=== PATIENT | female | born 1995 | race Two or more races ===

== ENCOUNTER 2016-10-11 21:58 | Emergency (ER) | payer OTHER ==
[2016-10-11 22:07] VITALS: TEMP 98; BMI 23.8
--- NOTE | 2016-10-11 23:28 | PDOC ---
History of Present Illness - General Chief Complaint: Pain Stated Complaint: VAGINAL BLEEDING/6 WEEKS Time Seen by Provider: 10/11/16 23:00 - History of Present Illness Initial Comments: 10/11/16 23:24 CHIEF COMPLAINT: vag bleeding in HISTORY OF PRESENT ILLNESS: 20 yo ~6 wk F with no PMH presents to ED with vaginal bleeding since yesterday. Patient reports that she went to [facility] yesterday and was told that her fetus was not developing correctly in correlation with her LMP. Patient does not have US report or discharge paperwork with her here in the ED. Patient denies any current abdominal pain but reports that she has been passing clots since around 6 pm. No recent travel or sick contacts. PAST MEDICAL HISTORY: Denies past medical history FAMILY HISTORY: Denies SOCIAL HISTORY: Denies tobacco, alcohol, illicit drug use. SURGICAL HISTORY: Denies ALLERGIES: peach REVIEW OF SYSTEMS General/Constitutional: Denies fever or chills. Denies weakness, weight change. Cardiovascular: Denies chest pain or shortness of breath. Respiratory: Denies cough, wheezing, or hemoptysis. Gastrointestinal: Denies nausea, vomiting, diarrhea or constipation. Genitourinary: Vaginal bleeding x 1 day. Denies dysuria, frequency, or change in urination. Musculoskeletal: Denies joint or muscle swelling or pain. Denies neck or back pain. Skin and breasts: Denies rash or easy bruising. Neurological: No dizziness, lightheadedness. PHYSICAL EXAM General Appearance: Well-appearing, appropriately dressed. No apparent distress , no intoxication. HEENT: EOMI, PERRLA, normal ENT inspection, normal voice, TMs normal, pharynx normal. No conjunctival pallor. No photophobia, scleral icterus. Neck: Supple. Trachea midline. No tenderness, rigidity, carotid bruit, stridor , lymphadenopathy, or thyromegaly. Respiratory/Chest: Lungs CTAB. No shortness of breath, chest tenderness, respiratory distress, accessory muscle use. No crackles, rales, rhonchi, stridor , wheezing, dullness Cardiovascular: RRR. S1, S2. No JVD, murmur, bradycardia, tachycardia. Vascular Pulses: Dorsalis-Pedis (R): 2+, Dorsalis-Pedis (L): 2+ Gastrointestinal/Abdominal: Normal bowel sounds. Abdomen soft, non-distended. No tenderness or rebound tenderness. No organomegaly, pulsatile mass, guarding , hernia, hepatomegaly, splenomegaly. Pelvic: External genitalia normal without lesions. Vaginal vault with copious bloody discharge, clots visualized. Cervical os open. Uterus is nontender and normal in size. Adnexa are nontender and without masses. Lymphatic: No adenopathy, tenderness. Musculoskeletal/Extremities: Normal inspection. FROM of all extremities, normal capillary refill. Pelvis Stable. No CVA tenderness. No tenderness to extremities, pedal edema, swelling, erythema or deformity. Integumentary: Appropriate color, dry, warm. 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 Fully oriented, alert. Appropriate mood/affect. Motor strength 5/5. No appreciable EOM palsy, facial droop or sensory deficit. Past History - Past Medical History Allergies/Adverse Reactions: Allergies Allergy/AdvReac Type Severity Reaction Status Date / Time peach Allergy Swelling Verified 10/11/16 22:03 Home Medications: Ambulatory Orders Ibuprofen [Motrin -] 600 mg PO TID PRN #21 tablet 04/16/15 Levofloxacin [Levaquin] 750 mg PO DAILY #4 tablet 04/16/15 Ondansetron [Zofran -] 4 mg PO TID PRN #21 tablet 04/16/15 Other medical history: Pt denies - Psycho/Social/Smoking Cessation Hx Suicidal Ideation: No Smoking History: Never smoked Information on smoking cessation initiated: No Hx Alcohol Use: No Drug/Substance Use Hx: No Substance Use Type: None *Physical Exam - Vital Signs Last Vital Signs Temp Pulse Resp BP Pulse Ox 98.0 F 64 20 137/83 99 10/11/16 22:03 10/11/16 22:03 10/11/16 22:03 10/11/16 22:03 10/11/16 22:03 ED Treatment Course - LABORATORY CBC & Chemistry Diagram: 10/11/16 23:50 10/11/16 23:50 - RADIOLOGY Radiology Studies Ordered: Category Date Time Status TRANSVAGINAL US PREG [US] Stat Ultrasound 10/11/16 23:24 Ordered Medical Decision Making - Medical Decision Making 10/11/16 23:28 20 yo ~6 wk F with no PMH presents to ED with vaginal bleeding since yesterday. -CBC, CMP, PT/INR, T&S, beta hcg -TVUS 10/12/16 01:45 H&H stable. Patient blood type )+, Rhogam not indicated. Ultrasound results: Findings: The uterus is anteverted and on endovaginal images measures 9.7 x 4.8 x 6 cm. The right ovary measures 3.7 x 1.9 cm and contains a 2.5 cm cyst there is normal arterial flow is seen in the ovarian parenchyma and color Doppler images. The left ovary has a normal appearance contains follicles and measures 1.3 x 2.4 x 1.2 cm with normal arterial and venous flow seen on color Doppler images. The endometrial complex measures 1 cm in diameter within normal limits. No free fluid is seen. Impression: No IUP. Normal appearance of the uterus, endometrium. Right ovarian cyst. Normal appearance of the ovaries otherwise have normal vascular flow seen bilaterally. Read by: Francisco Payne M.D. 10/12/2016 01:36 EST Advised patient to f/u with OB this week; patient states she has appointment on Tue. Advised patient of signs and symptoms for return to ER; patient verbalized understanding and agrees to plan. 10/12/16 02:01 *DC/Admit/Observation/Transfer Diagnosis at time of Disposition: Miscarriage Ovarian cyst Qualifiers: Laterality: right Qualified Code(s): N83.201 - Unspecified ovarian cyst, right side - Discharge Dispostion Disposition: HOME Condition at time of disposition: Stable Admit: No - Referrals Referrals: Ernesto Javed MD [Staff Physician] - - Patient Instructions Printed Discharge Instructions: DI for Miscarriage, DI for Ovarian Cyst Additional Instructions: Please follow up with your band and cuff cutter this week for continued monitoring of this miscarriage. If you experience severe bleeding (more than one soaked pad an hour), lightheadedness, dizziness, palpitations, or any new or worsening symptoms, please return to the ER.
[2016-10-12 00:03] LABS: BASOPHIL 0.7 % (0-2.0); EOSINOPHIL 1.8 % (0-4.5); MCH 31.9 pg (25.7-33.7); MCHC 33.6 g/dl (32.0-36.0); MEAN PLT VOLUME 8.5 fl (7.5-11.1); NEUTROPHILS 52.3 % (42.8-82.8); PLATELET COUNT 264 K/MM3 (134-434); RDW 13.2 % (11.6-15.6); WHITE BLOOD COUNT 9.6 K/mm3 (4.0-10.0)
[2016-10-12 00:16] LABS: INR 1.09 (0.82-1.09)
[2016-10-12 00:53] LABS: ALBUMIN 4.1 g/dl (3.4-5.0); ANION GAP 10 (8-16); CALCIUM 9.2 mg/dL (8.5-10.1); CO2 26 mmol/L (21-32); CREATININE 0.8 mg/dL (0.55-1.02); GLUCOSE,RANDOM 134 mg/dL (74-106); SGPT/ALT 20 U/L (12-78)
[2016-10-12 00:54] LABS: ALK PHOS 65 U/L (45-117); BILIRUBIN,TOTAL 0.3 mg/dL (0.2-1.0); TOT PROT 7.4 g/dl (6.4-8.2)
[2016-10-12 00:58] LABS: SGOT/AST 19 U/L (15-37)
[2016-10-12 02:01] VITALS: BP 128/76; PULSE 70
== END 2016-10-12 02:01 | disposition home or self-care (01) ==
LOC: JER 21:58
DX: O03.9 Complete or unspecified spontaneous abortion without complication (principal); N83.201 Unspecified ovarian cyst, right side
CPT/HCPCS: 36415; 76817-TC; 80053; 84702; 85025; 85610; 86850; 86900; 86901; 99282-25

== ENCOUNTER 2017-03-11 19:50 | Emergency (ER) | payer OTHER ==
--- NOTE | 2017-03-11 20:11 | PDOC ---
Rapid Medical Evaluation Time Seen by Provider: 03/11/17 20:10 Medical Evaluation: Allergies Allergy/AdvReac Type Severity Reaction Status Date / Time peach Allergy Swelling Verified 10/11/16 22:03 03/11/17 20:10 I have performed a brief in -person evaluation of this patient. The patient presents with a chief complaint of: "i have a UTI and back pain" Pertinent physical exam findings:L CVAT I have ordered the following: UA/ Upreg/UC The patient will proceed to the ED for further evaluation.
[2017-03-11 20:13] VITALS: BP 138/78; PULSE 81; TEMP 98.5; BMI 25.0
--- NOTE | 2017-03-11 21:13 | PDOC ---
History of Present Illness - General Chief Complaint: Urinary Problem Stated Complaint: ABD PAIN Time Seen by Provider: 03/11/17 20:10 History Source: Patient Exam Limitations: No Limitations - History of Present Illness Travel History: No Initial Comments: 03/11/17 21:29 21-year-old female with no medical history presents to the emergency department complaining of dysuria, urinary frequency/urgency/hesitancy x3dm without hematuria, fever/chills, nausea/vomiting, chest pain, shortness of breath, abdominal pains. Patient states she has a history of UTIs that turns into a kidney infection. Patient denies any other complaints Timing/Duration: reports: intermittent Pain Radiation: reports: flank (left) Past History - Past Medical History Allergies/Adverse Reactions: Allergies Allergy/AdvReac Type Severity Reaction Status Date / Time peach Allergy Swelling Verified 10/11/16 22:03 Home Medications: Ambulatory Orders Sulfamethoxazole/Trimethoprim [Bactrim Ds -] 1 tab PO BID #14 tablet 03/11/17 COPD: No - Suicide/Smoking/Psychosocial Hx Smoking History: Never smoked Hx Alcohol Use: No Drug/Substance Use Hx: No Substance Use Type: None Review of Systems - Review of Systems Able to Perform ROS?: Yes Comments:: 03/11/17 21:27 CONSTITUTIONAL: Absent: fever, chills, diaphoresis, generalized weakness, malaise, loss of appetite CARDIOVASCULAR: Absent: chest pain, loss of consciousness, palpitations, irregular heart rate, peripheral edema RESPIRATORY: Absent: cough, shortness of breath, dyspnea with exertion, orthopnea, wheezing, stridor, hemoptysis GASTROINTESTINAL: Absent: abdominal pain, abdominal distension, nausea, vomiting, diarrhea, constipation, melena, hematochezia GENITOURINARY: +right flank pain Absent: dysuria, frequency, urgency, hesitancy, hematuria, genital pain MUSCULOSKELETAL: Absent: myalgia, arthralgia, joint swelling SKIN: Absent: rash, itching, pallor HEMATOLOGIC/IMMUNOLOGIC: Absent: easy bleeding, easy bruising, lymphadenopathy, frequent infections Is the patient limited Tajik proficient: No *Physical Exam - Vital Signs Last Vital Signs Temp Pulse Resp BP Pulse Ox 98.5 F 81 18 138/78 99 03/11/17 20:10 03/11/17 20:10 03/11/17 20:10 03/11/17 20:10 03/11/17 20:10 - Physical Exam Comments: 03/11/17 21:27 GENERAL: Well developed, well nourished. Awake and alert. No acute distress. ABDOMINAL: Soft. Non-tender. Non-distended. No rebound or guarding. No organomegaly. Normoactive bowel sounds. MUSCULOSKELETAL +R CVAT Normal range of motion at all joints. No bony deformities or tenderness. EXTREMITIES: No cyanosis. No clubbing. No edema. No calf tenderness. SKIN: Warm and dry. Normal capillary refill. No rashes. No jaundice. Medical Decision Making - Medical Decision Making 03/12/17 02:47 21-year-old female presents to the emergency department complaining of dysuria, urinary frequency/urgency/hesitancy with left-sided flank pain but denied any fever, chills, nausea/vomiting. UA was sent but did not show a UTI. Due to patient's symptoms and the similarity to her previous pyelonephritis. Patient will be treated with Bactrim DS. *DC/Admit/Observation/Transfer Diagnosis at time of Disposition: Pyelonephritis - Discharge Dispostion Disposition: HOME Condition at time of disposition: Good Admit: No - Prescriptions Prescriptions: Sulfamethoxazole/Trimethoprim [Bactrim Ds -] 1 tab PO BID #14 tablet - Referrals Referrals: Ernesto Javed MD [Staff Physician] - - Patient Instructions Printed Discharge Instructions: DI for Kidney Infection Additional Instructions: Increase fluids] Take Bactrim DS as prescribed Pelvic rest Follow up with your physician or the housekeeper listed on your discharge Return to the ER for severe/persistent/worsening symptoms - Post Discharge Activity
[2017-03-11 21:35] LABS: URINE APPEARANCE SLCLOUDY; URINE BILIRUBIN NEGATIVE (NEGATIVE); URINE BLOOD 1+ (NEGATIVE); URINE COLOR YELLOW; URINE GLUCOSE (UA) NEGATIVE (NEGATIVE); URINE KETONE NEGATIVE (NEGATIVE); URINE LEUK ESTERASE TRACE (NEGATIVE); URINE NITRITE NEGATIVE (NEGATIVE); URINE PROTEIN NEGATIVE (NEGATIVE); URINE UROBILINOGEN NEGATIVE mg/dL (0.2-1.0)
[2017-03-11 21:36] LABS: HCG,QUALITATIVE URINE NEGATIVE
[2017-03-11 21:41] LABS: EPI CELLS MODERATE /HPF (FEW); URINE HYALINE CAST 4 /lpf; URINE MUCUS RARE
[2017-03-11] MEDS ORDERED: SULFAMETHOXAZOLE/TRIMETHOPRIM 800MG/160MG D.S. TABLET PO ONE (21:51)
[2017-03-11] MEDS ORDERED: SULFAMETHOXAZOLE/TRIMETHOPRIM 800MG/160MG D.S. TABLET ONE (21:53)
== END 2017-03-11 21:54 | disposition home or self-care (01) ==
LOC: JERFT 19:50
DX: N12 Tubulo-interstitial nephritis, not specified as acute or chronic (principal)
CPT/HCPCS: 81003; 81015; 84703; 87086; 99281-25

== ENCOUNTER 2017-03-21 08:57 | Emergency (ER) | payer OTHER ==
[2017-03-21 09:06] VITALS: BP 120/74; PULSE 77; TEMP 98.3; BMI 23.4
[2017-03-21 09:43] LABS: HCG,QUALITATIVE URINE NEGATIVE
[2017-03-21 09:44] LABS: URINE APPEARANCE SLCLOUDY; URINE BILIRUBIN NEGATIVE (NEGATIVE); URINE BLOOD NEGATIVE (NEGATIVE); URINE COLOR YELLOW; URINE GLUCOSE (UA) NEGATIVE (NEGATIVE); URINE KETONE NEGATIVE (NEGATIVE); URINE LEUK ESTERASE TRACE (NEGATIVE); URINE NITRITE NEGATIVE (NEGATIVE); URINE PROTEIN NEGATIVE (NEGATIVE); URINE UROBILINOGEN NEGATIVE mg/dL (0.2-1.0)
[2017-03-21 10:20] LABS: EPI CELLS MODERATE /HPF (FEW)
[2017-03-21] MEDS ORDERED: AZITHROMYCIN 1 GM PACKET PO ONE (11:10)
--- NOTE | 2017-03-21 11:10 | PDOC ---
History of Present Illness - General Chief Complaint: Back Pain Stated Complaint: LOWER BACK PAIN Time Seen by Provider: 03/21/17 09:29 History Source: Patient Exam Limitations: No Limitations - History of Present Illness Initial Comments: 03/21/17 11:12 Patient is a 21-year-old female, with history of frequent UTIs on no medication presents for evaluation of right lower back pain and suprapubic pain. Patient was seen in the emergency Department on 03/11/2017 for the same there is blood noted in urinalysis without WBCs urine culture was clear however patient was treated with antibiotics. Patient states that she completed course of antibiotic therapy and still with pain. Patient denies any fever or chills, no hematuria, no nausea vomiting, no chest pain or shortness of breath. No upper abdominal pain. She is sexually active with same partner. Past Medical History: [Denies]. Allergies: No known allergies Medications: [Bactrim, completed] Family History: Non-contributory Social History: Denies smoking, alcohol use, or IVDU Review of Systems GENERAL/CONSTITUTIONAL: [No fever or chills. No weakness. No weight change.] HEAD, EYES, EARS, NOSE AND THROAT: [No change in vision. No ear pain or discharge. No sore throat. ] CARDIOVASCULAR: [No chest pain or shortness of breath.] RESPIRATORY: [No cough, wheezing, or hemoptysis.] GASTROINTESTINAL: [No nausea, vomiting, diarrhea or constipation. No rectal bleeding.] GENITOURINARY: [Frequency without dysuria, vaginal discharge no bleeding] MUSCULOSKELETAL: [No joint or muscle swelling or pain. No neck or back pain.] SKIN : [No rash or easy bruising.] NEUROLOGIC: [No headache, vertigo, loss of consciousness, or loss of sensation.] PSYCHIATRIC: [No depression or anxiety.] ENDOCRINE: [No increased thirst. No abnormal weight change.] HEMATOLOGIC/LYMPHATIC: [No anemia, easy bleeding, or history of blood clots.] ALLERGIC/IMMUNOLOGIC: [No hives or skin allergy. No latex allergy.] Physical Exam: GENERAL: [The patient is awake, alert, and fully oriented, in no acute distress. ] HEAD: [Normal with no signs of trauma.] EYES: [Pupils equal, round and reactive to light, extraocular movements intact, sclera anicteric, conjunctiva clear.] ENT: [Ears normal, nares patent, oropharynx clear without exudates. Moist mucous membranes. No uvula deviation] NECK: [Normal range of motion, supple without lymphadenopathy, JVD, or masses.] LUNGS: [Breath sounds equal, clear to auscultation bilaterally. No wheezes, and no crackles.] HEART: [Regular rate and rhythm, normal S1 and S2 without murmur, rub or gallop. ] ABDOMEN: [Soft, nontender, normoactive bowel sounds. No guarding, no rebound. No masses. No bruising or abrasions] Genitalia: White discharge, no odor, is no CMT MUSCULOSKELETAL: [Normal range of motion, no edema. No clubbing or cyanosis. No cords, erythema, or tenderness. No CVA Tenderness with fist.] NEUROLOGICAL: [Cranial nerves II through XII grossly intact. Normal speech, normal gait.] SKIN: [Warm, Dry, normal turgor, no rashes or lesions noted.] Past History - Past Medical History Allergies/Adverse Reactions: Allergies Allergy/AdvReac Type Severity Reaction Status Date / Time peach Allergy Swelling Verified 03/21/17 09:02 Home Medications: Ambulatory Orders Sulfamethoxazole/Trimethoprim [Bactrim Ds -] 1 tab PO BID #14 tablet 03/11/17 COPD: No DVT: No - Immunization History Immunization Up to Date: Yes - Suicide/Smoking/Psychosocial Hx Smoking History: Never smoked Have you smoked in the past 12 months: No Information on smoking cessation initiated: No Hx Alcohol Use: No Drug/Substance Use Hx: No Substance Use Type: None *Physical Exam - Vital Signs Last Vital Signs Temp Pulse Resp BP Pulse Ox 98.3 F 77 16 120/74 98 03/21/17 09:03 03/21/17 09:03 03/21/17 09:03 03/21/17 09:03 03/21/17 09:03 ED Treatment Course - ADDITIONAL ORDERS Additional order review: Laboratory Results 03/21/17 09:36 Urine Color Yellow Urine Appearance Slcloudy Urine pH 6.0 Ur Specific [place] 1.020 Urine Protein Negative Urine Glucose (UA) Negative Urine Ketones Negative Urine Blood Negative Urine Nitrite Negative Urine Bilirubin Negative Urine Urobilinogen Negative Ur Leukocyte Esterase Trace Urine WBC (Auto) 7 Urine RBC (Auto) None Ur Epithelial Cells Moderate Urine HCG, Qual Negative - RADIOLOGY Radiology Studies Ordered: Category Date Time Status HIP & PELVIS-RIGHT [RAD] Stat Radiology 03/21/17 10:11 Completed Medical Decision Making - Medical Decision Making 03/21/17 11:20 A/P: Patient with lower back pain and suprapubic pain denies any urinary pain or frequency however has vaginal discharge which is not normal for patient denies any odor. Sent to x-ray of right hip because there is pain at level of SI joint may be dermatomal radiating to lower abdomen versus STD. Urinalysis sent, there are WBCs with absence of nitrates patient has been treated with Bactrim urinary culture was previously clear. Based upon patient's symptoms, urinalysis results will treat for STD with azithromycin and Rocephin. Patient to call in one week for results of gonorrhea chlamydia testing. Motrin for pain, follow-up with APPRENTICESHIP CONSULTANT I discussed the physical exam findings, ancillary test results and final diagnoses with the patient. I answered all of the patient's questions. The patient was satisfied with the care received and felt comfortable with the discharge plan and treatment plan. The patient will call to arrange follow-up and will return to the Emergency Department with any new, persistent or worsening symptoms. *DC/Admit/Observation/Transfer Diagnosis at time of Disposition: Back pain Qualifiers: Back pain location: low back pain Chronicity: acute Back pain laterality: right Sciatica presence: without sciatica Qualified Code(s): M54.5 - Low back pain - Discharge Dispostion Disposition: HOME Condition at time of disposition: Stable Admit: No - Referrals Referrals: [facility] [Provider Group] - Patient Instructions Additional Instructions: PLease call [phone] in one week for results of GC and Chlamydia and urine culture Motrin for pain No sexual intercourse for at least 2 weeks Recommend follow-up with PMD in 1 week if symptoms persist - Post Discharge Activity Forms/Work/School Notes: Back to Work
[2017-03-21] MEDS ORDERED: AZITHROMYCIN 250 MG TABLET PO ONE (11:19)
[2017-03-21] MEDS ORDERED: LIDOCAINE HCL 1%, 10 MG/ML (20ML VIAL) ONE (11:20)
[2017-03-21] MEDS ORDERED: AZITHROMYCIN 500 MG TABLET ONE (11:20)
== END 2017-03-21 11:39 | disposition home or self-care (01) ==
LOC: JERFT 08:57
DX: M54.5 Low back pain (principal); Z20.2 Contact with and (suspected) exposure to infections with a predominantly sexual mode of transmission
CPT/HCPCS: 36415; 73523-TC; 81003; 81015; 84703; 87086; 87491; 87591; 96372; 99281-25

== ENCOUNTER 2017-08-03 10:44 | Emergency (ER) | payer OTHER ==
[2017-08-03 10:49] VITALS: BP 119/78; PULSE 71; TEMP 97.7; BMI 23.8
--- NOTE | 2017-08-03 11:50 | PDOC ---
History of Present Illness - General Chief Complaint: Sore Throat Stated Complaint: THROAT PAIN Time Seen by Provider: 08/03/17 10:50 - History of Present Illness Initial Comments: 21-year-old female with sore throat 2 days. Her pain is relieved with Motrin exacerbated with swallowing. No comorbidities. She has no other associated symptoms. 08/03/17 11:47 Past History - Past Medical History Allergies/Adverse Reactions: Allergies Allergy/AdvReac Type Severity Reaction Status Date / Time peach Allergy Swelling Verified 08/03/17 10:45 Home Medications: Ambulatory Orders NK [No Known Home Medication] 08/03/17 COPD: No DVT: No - Immunization History Immunization Up to Date: Yes - Suicide/Smoking/Psychosocial Hx Smoking History: Never smoked Have you smoked in the past 12 months: No Hx Alcohol Use: No Drug/Substance Use Hx: No Substance Use Type: None Review of Systems - Review of Systems HEENTM: Yes: Throat Pain All Other Systems: Reviewed and Negative *Physical Exam - Vital Signs Last Vital Signs Temp Pulse Resp BP Pulse Ox 97.7 F 71 20 119/78 99 08/03/17 10:45 08/03/17 10:45 08/03/17 10:45 08/03/17 10:45 08/03/17 10:45 - Physical Exam Comments: GENERAL: The patient is awake, alert, and fully oriented, in no acute distress. HEAD: Normal with no signs of trauma. EYES: Pupils equal, round and reactive to light, extraocular movements intact, sclera anicteric, conjunctiva clear. ENT: Ears normal, nares patent, oropharynx is injected without exudates. Moist mucous membranes. NECK: Normal range of motion, supple without lymphadenopathy, JVD, or masses. LUNGS: Breath sounds equal, clear to auscultation bilaterally. No wheezes, and no crackles. HEART: Regular rate and rhythm, normal S1 and S2 without murmur, rub or gallop. ABDOMEN: Soft, nontender, normoactive bowel sounds. No guarding, no rebound. No masses. EXTREMITIES: Normal range of motion, no edema. No clubbing or cyanosis. No cords, erythema, or tenderness. NEUROLOGICAL: Cranial nerves II through XII grossly intact. Normal speech, normal gait. PSYCH: Normal mood, normal affect. SKIN: Warm, Dry, normal turgor, no rashes or lesions noted. 08/03/17 11:49 Medical Decision Making - Medical Decision Making 21-year-old healthy female with sore throat 2 days. I'll get a rapid strep test and await those results. 08/03/17 11:49 *DC/Admit/Observation/Transfer Diagnosis at time of Disposition: Viral pharyngitis - Discharge Dispostion Disposition: HOME Condition at time of disposition: Stable Decision to Admit order: No - Referrals Referrals: Jack Lee MD [Staff Physician] - - Patient Instructions Printed Discharge Instructions: Viral Pharyngitis, DI for Viral Pharyngitis Additional Instructions: Your rapid strep test was negative. A culture was sent Should the result become positive we will place her on antibiotic if needed. In the meantime he can follow up with the primary care provider at provided for you. Continue to take Motrin and Tylenol for pain as directed. Return to the emergency room if her symptoms worsen or go unresolved prior to follow-up with the primary care doctor. - Post Discharge Activity
== END 2017-08-03 12:37 | disposition home or self-care (01) ==
LOC: JERFT 10:44
DX: J02.8 Acute pharyngitis due to other specified organisms (principal); B97.89 Other viral agents as the cause of diseases classified elsewhere
CPT/HCPCS: 87070; 87430; 99281-25

== ENCOUNTER 2019-05-02 14:45 | Inpatient (IN) | payer OTHER ==
[2019-05-02 16:43] VITALS: BMI 26.2
[2019-05-02 17:41] LABS: INR 0.95 (0.83-1.09); PROTHROMBIN TIME (PATIENT) 11.2 SEC (9.7-13.0)
[2019-05-02 17:42] LABS: BASO % 0.2 % (0-2.0); EOS % 0.6 % (0-4.5); HEMATOCRIT 33.2 % (32.4-45.2); HEMOGLOBIN 10.8 GM/dL (10.7-15.3); LYMPH % 38.3 % (8-40); MCH 29.4 pg (25.7-33.7); MCHC 32.6 g/dl (32.0-36.0); MEAN CELL VOLUME 90.1 fl (80-96); MONO % 10.1 % (3.8-10.2); NEUT % 50.8 % (42.8-82.8); PLATELET COUNT 298 K/MM3 (134-434); RBC 3.69 M/mm3 (3.60-5.2); WHITE BLOOD COUNT 7.3 K/mm3 (4.0-10.0)
[2019-05-02 17:44] LABS: ACTIVATED PTT 31.2 SECONDS (25.2-36.5)
[2019-05-02 18:07] LABS: BLOOD UREA NITROGEN 8.2 mg/dL (7-18); CALCIUM 8.5 mg/dL (8.5-10.1); CREATININE 0.8 mg/dL (0.55-1.3); POTASSIUM 4.1 mmol/L (3.5-5.1)
--- NOTE | 2019-05-02 18:32 | HP ---
Past Medical History - Primary Care Physician PCP:: Josie Rowe - Admission Chief Complaint: 23yo P0 @ 39.4 wks noted to have SUSANNE=2 on the US today, no ctxns, no VB, no LOF, + FM;. Sent to L&D for IOL with cervidil - Past Medical History ...: 4 ...Para: 0 ...Spon : 1 ...Induced : 2 ...LMP: 07/27/18 ... Weeks Gestation by Dates: 39.6 ...EDC by Dates: 05/03/19 ...EDC by Sono: 05/06/19 - Past Surgical History Past Surgical History: Yes: None - Smoking History Smoking history: Never smoked Have you smoked in the past 12 months: No - Alcohol/Substance Use Hx Alcohol Use: No History of Substance Use: reports: None - Social History ADL: Independent History of Recent Travel: No Home Medications - Allergies Allergies/Adverse Reactions: Allergies Allergy/AdvReac Type Severity Reaction Status Date / Time peach Allergy Swelling Verified 02/23/19 11:12 - Home Medications Home Medications: Ambulatory Orders Prenat 115/Iron Fum/Folic/Dss [ 19 Tablet] 1 cap PO DAILY 02/23/19 Physical Exam - Maternity Vital Signs: Vital Signs Temperature 98.3 F 05/02/19 16:00 Pulse Rate 90 05/02/19 16:00 Respiratory Rate 20 05/02/19 16:00 Blood Pressure 113/70 05/02/19 16:00 O2 Sat by Pulse Oximetry (%) - Labs Lab Results: CBC, BMP 05/02/19 15:50 05/02/19 15:50
[2019-05-02] MEDS ORDERED: ELECTROLYTE-148 SOLN 1,000 ML IV SCH (18:45)
[2019-05-02] MEDS ORDERED: DINOPROSTONE 10 MG VAGINAL SUPPOSITORY VG ONE (20:00)
[2019-05-03] MEDS ORDERED: DINOPROSTONE 10 MG VAGINAL SUPPOSITORY VG ONE
[2019-05-03] MEDS ORDERED: ELECTROLYTE-148 SOLN 1,000 ML IV SCH (09:30)
--- NOTE | 2019-05-03 20:10 | PN ---
Progress Note (short form) - Note Progress Note: 230 pm cx 1 cm 25 vx -3 mi, fhr cat 1, irregular mild contraction , repeat cervidl discussed , risks explained, cervidil inserted
[2019-05-03] MEDS ORDERED: PROMETHAZINE HCL 25 MG/1 ML VIAL IVPB ONE (21:07)
[2019-05-03] MEDS ORDERED: BUTORPHANOL TARTRATE 1 MG/ML VIAL IVPUSH PRN (21:07)
[2019-05-04] MEDS ORDERED: OXYTOCIN 30 UNITS in 0.9% NS 30 UNIT/500 ML INFUS.BAG IVPB SCH (05:00)
[2019-05-04] MEDS ORDERED: OXYTOCIN 30 UNITS in 0.9% NS 30 UNIT/500 ML INFUS.BAG IVPB ONE (05:08)
--- NOTE | 2019-05-04 06:39 | PN ---
Progress Note (short form) - Note Progress Note: cx 2 cm 70 vx -3 mi, fhr cat 1, cervidil was removed at 3 am, on pitocin.
[2019-05-04] MEDS ORDERED: AMPICILLIN SODIUM 2 GM VIAL ONE (07:41)
[2019-05-04] MEDS ORDERED: AMPICILLIN - 2 GM in SODIUM CHLORIDE 100 ML IVPB ONE (08:00)
[2019-05-04] MEDS: AMPICILLIN - 1 GM in SODIUM CHLORIDE 100 ML IVPB SCH ×2 (12:00→15:48)
[2019-05-04] MEDS ORDERED: AMPICILLIN SODIUM 1 GM VIAL ONE (12:55)
[2019-05-04] MEDS ORDERED: CITRIC ACID/SODIUM CITRATE 30 ML UNIT-DOSE CUP PO ONE (15:25)
[2019-05-04] MEDS ORDERED: ELECTROLYTE-148 SOLN 1,000 ML IV SCH (15:30)
--- NOTE | 2019-05-04 15:31 | PN ---
Progress Note (short form) - Note Progress Note: cx 2 cm, 50 vx -3 advised c/s, risks discussed
[2019-05-04] MEDS ORDERED: SUCCINYLCHOLINE CHLORIDE 200 MG/10 ML SYRINGE ONE (15:53)
[2019-05-04] MEDS ORDERED: morphine SULFATE/PF 0.5 MG/ML (2cc Syringe - QUVA) ONE (15:53)
[2019-05-04] MEDS ORDERED: PROPOFOL 20 ML ONE (15:53)
[2019-05-04] MEDS ORDERED: METHYLERGONOVINE MALEATE 0.2 MG/1 ML AMP IM PRN (17:00)
[2019-05-04] MEDS ORDERED: DEXTROSE 5%-LACTATED RINGERS 1,000 ML IV SCH (17:00)
[2019-05-04] MEDS ORDERED: IBUPROFEN 800 MG/8 ML IJ IVPB PRN (17:00)
[2019-05-04] MEDS ORDERED: OXYTOCIN 20 UNITS in 0.9% NS 20 UNIT/1,000 ML INFUS.BAG IV SCH (17:00)
[2019-05-04] MEDS ORDERED: diphenhydrAMINE HCL 25 MG CAPSULE (FP) PO PRN (17:00)
[2019-05-04] MEDS ORDERED: BENZOCAINE 28 GM HEMORRHOIDAL OINTMENT PR PRN (17:00)
[2019-05-04] MEDS ORDERED: oxyCODONE HCL 5 MG TABLET PO PRN ×2 (17:00)
[2019-05-04] MEDS ORDERED: BENZOCAINE 20% 57 GM BOTTLE TP PRN (17:00)
[2019-05-04] MEDS ORDERED: WITCH HAZEL 50% (TUCKS) 40 PAD/JAR PAD TP PRN (17:00)
[2019-05-04] MEDS ORDERED: ACETAMINOPHEN 325 MG TABLET (FP) PO PRN (17:01)
--- NOTE | 2019-05-04 17:05 | OP ---
Operative Note - Note: Operative Date: 05/04/19 Pre-Operative Diagnosis: 40 weeks, oligo , failed induction Operation: primary LST c/s Findings: live baby boy, ROP, cord around neck once, 11/13 Surgeon: Ernesto Javed Asset Card Clerk: Capo Rawls Anesthesia: Spinal Specimens Removed: placenta Estimated Blood Loss (mls): 500 Drains & Tubes with Location: iros Blood Volume Replaced (mls): 0 Operative Report Dictated: Yes
[2019-05-04] MEDS ORDERED: OXYTOCIN 20 UNITS in 0.9% NS 20 UNIT/1,000 ML INFUS.BAG IV ONE ×2 (17:14→21:02)
[2019-05-04] MEDS: CEFAZOLIN 1 GM/D5W 1 GM/50 ML BAG IVPB SCH (19:30)
[2019-05-05] MEDS: CEFAZOLIN 1 GM/D5W 1 GM/50 ML BAG IVPB SCH (02:08)
--- NOTE | 2019-05-05 08:38 | PN ---
Progress Note (short form) - Note Progress Note: Anesthesia/pain Pt seen and examined S:Alert and awake comfortable O: Vital Signs Temperature 98.0 F 05/05/19 06:00 Pulse Rate 98 H 05/05/19 06:00 Respiratory Rate 05/05/19 06:00 Blood Pressure 125/75 05/05/19 06:00 O2 Sat by Pulse Oximetry (%) 99 05/04/19 17:15 CBC, BMP 05/02/19 15:50 A/P: s/p c section Doing well post op Continue current care Forest Tenorio MD
[2019-05-05 09:15] LABS: BASO % 0.2 % (0-2.0); EOS % 0.3 % (0-4.5); HEMATOCRIT 32.2 % (32.4-45.2); HEMOGLOBIN 10.6 GM/dL (10.7-15.3); LYMPH % 17.3 % (8-40); MCHC 32.8 g/dl (32.0-36.0); MEAN CELL VOLUME 91.4 fl (80-96); MEAN PLT VOLUME 8.9 fl (7.5-11.1); MONO % 8.3 % (3.8-10.2); NEUT % 73.9 % (42.8-82.8); PLATELET COUNT 278 K/MM3 (134-434); RBC 3.52 M/mm3 (3.60-5.2); RDW 13.2 % (11.6-15.6); WHITE BLOOD COUNT 12.5 K/mm3 (4.0-10.0)
[2019-05-05] MEDS ORDERED: CEFAZOLIN 1 GM/D5W 1 GM/50 ML BAG IVPB SCH (10:00)
[2019-05-05] MEDS: ENOXAPARIN NA (PORCINE) 40 MG/0.4 ML DISP.SYRIN SQ SCH (10:18)
[2019-05-05] MEDS: ACETAMINOPHEN 325 MG TABLET (FP) PO PRN ×3 (11:59→22:36)
[2019-05-05] MEDS: SIMETHICONE 80 MG TAB.CHEW (FP) PO PRN ×3 (11:59→22:36)
[2019-05-05] MEDS: IBUPROFEN 600 MG TABLET (FP) PO PRN ×3 (12:00→22:37)
[2019-05-05] MEDS ORDERED: BISACODYL 10 MG SUPP.RECT PR PRN (17:00)
--- NOTE | 2019-05-05 17:45 | PN ---
Post Progress Note - Subjective Subjective: Patient without acute complaints. Reports tolerating oral intake without nausea or vomiting. Ambulating without dizziness. Denies fevers or chills. Pain well controlled with oral pain medication. Plan on pumping and breast feeding. No flatus or BM yet. Post Day: 1 Type of Delivery: Primary C/S Vital Signs: Vital Signs Temperature 97.5 F L 05/05/19 13:49 Pulse Rate 84 05/05/19 13:49 Respiratory Rate 20 05/05/19 13:49 Blood Pressure 110/72 05/05/19 13:49 O2 Sat by Pulse Oximetry (%) 99 05/04/19 17:15 Breast Exam: Yes: Soft Uterus: Yes: Fundus Firm, Fundus below umbilicus Incision: Yes: Dressing dry and intact, Sutures intact Abdomen/GI: Yes: Abdomen soft Lochia: Yes: Rubra Lochia, amount: Small Extremities: Yes: Calves non-tender Perineum: Yes: Intact Activity: Ambulating - Labs Labs: CBC WBC 12.5 K/mm3 (4.0-10.0) H 05/05/19 07:25 RBC 3.52 M/mm3 (3.60-5.2) L 05/05/19 07:25 Hgb 10.6 GM/dL (10.7-15.3) L 05/05/19 07:25 Hct 32.2 % (32.4-45.2) L 05/05/19 07:25 MCV 91.4 fl (80-96) 05/05/19 07:25 MCH 30.0 pg (25.7-33.7) 05/05/19 07:25 MCHC 32.8 g/dl (32.0-36.0) 05/05/19 07:25 RDW 13.2 % (11.6-15.6) 05/05/19 07:25 Plt Count 278 K/MM3 (134-434) 05/05/19 07:25 MPV 8.9 fl (7.5-11.1) 05/05/19 07:25 Absolute Neuts (auto) 9.2 K/mm3 (1.5-8.0) H 05/05/19 07:25 Neutrophils % 73.9 % (42.8-82.8) D 05/05/19 07:25 Lymphocytes % 17.3 % (8-40) D 05/05/19 07:25 Monocytes % 8.3 % (3.8-10.2) 05/05/19 07:25 Eosinophils % 0.3 % (0-4.5) 05/05/19 07:25 Basophils % 0.2 % (0-2.0) 05/05/19 07:25 Nucleated RBC % 0 % (0-0) 05/05/19 07:25 Assessment/Plan 23yo P1 s/p primary LT C/S, doing well stable, afebrile. The pt is asymptomatic for s/sxs of anemia. care instructions reviewed. Continue routine postop care. Ambulation encouraged.
[2019-05-06] MEDS: SIMETHICONE 80 MG TAB.CHEW (FP) PO PRN ×3 (08:11→19:55)
[2019-05-06] MEDS: ACETAMINOPHEN 325 MG TABLET (FP) PO PRN ×4 (08:11→23:37)
[2019-05-06] MEDS: IBUPROFEN 600 MG TABLET (FP) PO PRN ×4 (08:12→23:38)
[2019-05-06] MEDS: ENOXAPARIN NA (PORCINE) 40 MG/0.4 ML DISP.SYRIN SQ SCH (10:56)
--- NOTE | 2019-05-06 15:28 | PN ---
Post Progress Note - Subjective Subjective: Patient without acute complaints. Reports tolerating oral intake without nausea or vomiting. Ambulating without dizziness. Denies fevers or chills. Pain well controlled with oral pain medication. Pumping/breast feeding without issue. Passing flatus and had a BM. Post Day: 2 Type of Delivery: Primary C/S Vital Signs: Vital Signs Temperature 97.7 F 05/06/19 09:06 Pulse Rate 73 05/06/19 09:06 Respiratory Rate 20 05/06/19 09:06 Blood Pressure 107/66 05/06/19 09:06 O2 Sat by Pulse Oximetry (%) 99 05/04/19 17:15 Breast Exam: Yes: Soft Uterus: Yes: Fundus Firm, Fundus below umbilicus, Non-tender Incision: Yes: Dressing dry and intact, Sutures intact Abdomen/GI: Yes: Abdomen soft, Passing flatus, Tolerating PO Lochia: Yes: Rubra Lochia, amount: Small Extremities: Yes: Calves non-tender Perineum: Yes: Intact Activity: Ambulating - Labs Labs: CBC WBC 12.5 K/mm3 (4.0-10.0) H 05/05/19 07:25 RBC 3.52 M/mm3 (3.60-5.2) L 05/05/19 07:25 Hgb 10.6 GM/dL (10.7-15.3) L 05/05/19 07:25 Hct 32.2 % (32.4-45.2) L 05/05/19 07:25 MCV 91.4 fl (80-96) 05/05/19 07:25 MCH 30.0 pg (25.7-33.7) 05/05/19 07:25 MCHC 32.8 g/dl (32.0-36.0) 05/05/19 07:25 RDW 13.2 % (11.6-15.6) 05/05/19 07:25 Plt Count 278 K/MM3 (134-434) 05/05/19 07:25 MPV 8.9 fl (7.5-11.1) 05/05/19 07:25 Absolute Neuts (auto) 9.2 K/mm3 (1.5-8.0) H 05/05/19 07:25 Neutrophils % 73.9 % (42.8-82.8) D 05/05/19 07:25 Lymphocytes % 17.3 % (8-40) D 05/05/19 07:25 Monocytes % 8.3 % (3.8-10.2) 05/05/19 07:25 Eosinophils % 0.3 % (0-4.5) 05/05/19 07:25 Basophils % 0.2 % (0-2.0) 05/05/19 07:25 Nucleated RBC % 0 % (0-0) 05/05/19 07:25 Assessment/Plan 23yo P1 s/p primary LT C/S, doing well stable, afebrile. Postop instructions reviewed. care instructions reviewed. Continue routine postop care. Ambulation encouraged.
--- NOTE | 2019-05-06 15:31 | DS ---
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 Vital Signs: Vital Signs Temperature 97.7 F 05/06/19 09:06 Pulse Rate 73 05/06/19 09:06 Respiratory Rate 20 05/06/19 09:06 Blood Pressure 107/66 05/06/19 09:06 O2 Sat by Pulse Oximetry (%) 99 05/04/19 17:15 Constitutional: Yes: Well Nourished, No Distress, Calm Eyes: Yes: WNL, Conjunctiva Clear, EOM Intact HENT: Yes: WNL, Atraumatic, Normocephalic Neck: Yes: WNL, Supple, Trachea Midline Cardiovascular: Yes: WNL, Regular Rate and Rhythm Respiratory: Yes: WNL, Regular, CTA Bilaterally Gastrointestinal: Yes: WNL, Normal Bowel Sounds, Soft ...Rectal Exam: Yes: Deferred Renal/: Yes: WNL ....Post : Yes: Uterus firm, Uterus non-tender, Slight lochia rubra Breast(s): Yes: WNL Musculoskeletal: Yes: WNL Extremities: Yes: WNL Edema: No Integumentary: Yes: WNL Wound/Incision: Yes: Clean/Dry, Well Approximated, Sutures Intact, Steri Strips , Open to air Neurological: Yes: WNL, Alert, Oriented ...Motor Strength: WNL Psychiatric: Yes: WNL, Alert, Oriented Labs: CBC, BMP 05/05/19 07:25 05/02/19 15:50 Delivery - Delivery Section: Primary, Low Flap Transverse Type of Anesthesia: Spinal Episiotomy/Laceration: None EBL (cc): 500 Delivery, Single - Stages of Labor Date of Delivery: 05/04/19 Time of Delivery: 16:28 Time Placenta Delivered: 16:29 Placenta: Yes: Expressed, Normal Configuration - 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: Yes Name: Sue Del Valle Infant Gender: Male Weight: 3.09 kg Position: Right, OP Total Hours ROM (Hrs/Mins): 1m - 1 Minute Total Score: 9 5 Minutes Total Score: 9 - Feeding Plan Initial Plan: Elected not to breastfeed exclusively throughout hospitalization Discharge Summary Problems reviewed: Yes Reason For Visit: INDUCTION OF LABOR Postop Procedures: Principal: Primary LT C/S Hospital Course: Normal postop recovery and course Condition: Good - Instructions Diet, Activity, Other Instructions: Physical activity Resume your normal everyday activity as tolerated no heavy lifting or exercise until seen by your surgeon. You may walk unlimited javier of and climb stairs. You may resume driving the car when you feel safe and comfortable behind the wheel. No sexual activity as instructed. Wound care If you have a bandage, leave it on, and keep dry for 48-72 hours. After that time discard the outer bandage. If they are tapes on the skin under the out of bandage leave them in place. They will peel off in the next 7 to 10 days. Do Not Peel them off. You may shower the day after surgery. If there are tapes present on the skin, you may shower over them. Diet There are no dietary restrictions. Eat healthy, high-fiber foods. Drink 6 to 8 glasses of liquid each day. This will assist in keeping your bowels are regular. Pain management You may take Tylenol or acetaminophen or Ibuprofen (for example, Motrin, Advil etc.) from my pain prescription medication is ordered should be taken as prescribed for moderate to severe pain. Call MD for any of the following: Severe pain not relieved by medication Fever of 101 or higher Excessive bleeding or drainage on dressing Inability to urinate Referrals: Josie Rowe MD [Staff Physician] - 1 Week Disposition: HOME - Home Medications Comprehensive Discharge Medication List: Ambulatory Orders Prenat 115/Iron Fum/Folic/Dss [ 19 Tablet] 1 cap PO DAILY 02/23/19 Prescription Drug Monitoring Program (I-STOP) results: I-STOP not reviewed
[2019-05-06 20:10] VITALS: TEMP 98.1
[2019-05-06] MEDS ORDERED: SENNOSIDES/DOCUSATE COMBO (SENNA PLUS) TABLET (UD) PO PRN (22:00)
[2019-05-07] MEDS: ACETAMINOPHEN 325 MG TABLET (FP) PO PRN ×2 (07:21→11:40)
[2019-05-07] MEDS: IBUPROFEN 600 MG TABLET (FP) PO PRN ×2 (07:22→11:40)
[2019-05-07 07:33] LABS: BASO % 0.3 % (0-2.0); EOS % 1.3 % (0-4.5); HEMATOCRIT 29.1 % (32.4-45.2); HEMOGLOBIN 9.8 GM/dL (10.7-15.3); LYMPH % 32.6 % (8-40); MCH 30.4 pg (25.7-33.7); MCHC 33.6 g/dl (32.0-36.0); MEAN CELL VOLUME 90.4 fl (80-96); MEAN PLT VOLUME 8.5 fl (7.5-11.1); MONO % 8.4 % (3.8-10.2); NEUT % 57.4 % (42.8-82.8); PLATELET COUNT 293 K/MM3 (134-434); RBC 3.22 M/mm3 (3.60-5.2); RDW 13.1 % (11.6-15.6); WHITE BLOOD COUNT 9.8 K/mm3 (4.0-10.0)
[2019-05-07] MEDS: ENOXAPARIN NA (PORCINE) 40 MG/0.4 ML DISP.SYRIN SQ SCH (09:51)
--- NOTE | 2019-05-07 09:56 | PN ---
Post Progress Note - Subjective Subjective: No complaints and doing well. Post Day: 3 Type of Delivery: Primary C/S Vital Signs: Vital Signs Temperature 98.1 F 05/06/19 20:09 Pulse Rate 90 05/06/19 20:09 Respiratory Rate 18 05/06/19 20:09 Blood Pressure 120/60 05/06/19 20:09 O2 Sat by Pulse Oximetry (%) 99 05/04/19 17:15 Breast Exam: Yes: Soft Uterus: Yes: Fundus Firm, Fundus below umbilicus, Non-tender Incision: Yes: Sutures intact Abdomen/GI: Yes: Abdomen soft, Passing flatus, Tolerating PO, Other (had BM) Lochia: Yes: Rubra Lochia, amount: Small Extremities: Yes: Calves non-tender Perineum: Yes: Intact Activity: Ambulating - Labs Labs: CBC WBC 9.8 K/mm3 (4.0-10.0) 05/07/19 06:55 RBC 3.22 M/mm3 (3.60-5.2) L 05/07/19 06:55 Hgb 9.8 GM/dL (10.7-15.3) L 05/07/19 06:55 Hct 29.1 % (32.4-45.2) L 05/07/19 06:55 MCV 90.4 fl (80-96) 05/07/19 06:55 MCH 30.4 pg (25.7-33.7) 05/07/19 06:55 MCHC 33.6 g/dl (32.0-36.0) 05/07/19 06:55 RDW 13.1 % (11.6-15.6) 05/07/19 06:55 Plt Count 293 K/MM3 (134-434) 05/07/19 06:55 MPV 8.5 fl (7.5-11.1) 05/07/19 06:55 Absolute Neuts (auto) 5.6 K/mm3 (1.5-8.0) 05/07/19 06:55 Neutrophils % 57.4 % (42.8-82.8) D 05/07/19 06:55 Lymphocytes % 32.6 % (8-40) D 05/07/19 06:55 Monocytes % 8.4 % (3.8-10.2) 05/07/19 06:55 Eosinophils % 1.3 % (0-4.5) D 05/07/19 06:55 Basophils % 0.3 % (0-2.0) 05/07/19 06:55 Nucleated RBC % 0 % (0-0) 05/07/19 06:55 Assessment/Plan 23yo P1 s/p primary LT C/S, doing well stable, afebrile. Postop instructions reviewed. care instructions reviewed. Ambulation encouraged. Plan to d/c home today. Pt requested circumcision for baby
[2019-05-07 10:21] VITALS: BP 129/71; PULSE 78
--- NOTE | 2019-05-11 17:54 | PATH ---
Surgical Pathology Report Patient Name: KALEE ELIAS Med. Rec. 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 Specimen(s) Received PLACENTA Clinical History 40+ weeks, oligohydramnios, failed induction Final Diagnosis PLACENTA, SECTION: 337 G THIRD TRIMESTER PLACENTA WITH TRIVASCULAR UMBILICAL CORD AND UNREMARKABLE PLACENTAL MEMBRANES. Electronically Signed Vanessa Aleman M.D. Gross Description The specimen is received fresh labeled placenta and is a 337 gram, 15.0 x 13.5 x 2.3 cm. placenta with attached membranes and umbilical cord. The attached membranes are gutierrez, translucent with focal opacities and insert marginally. The umbilical cord measures 38 cm. in length and averages 1 cm. in diameter. The cord inserts eccentrically, 2.5 cm. to the nearest margin. No true knots or strictures are identified. Cut surface of the umbilical cord reveals 3 vessels. The surface is bryant-blue with minimal fibrin deposition and appropriate caliber vessels. The maternal surface is red-brown with focal defects. Sectioning reveals red-brown, spongy parenchyma. No lesions are identified. Human Resources Assistant sections are submitted in three cassettes as follows: 1- membrane rolls and umbilical cord; 2-3- full thickness sections of placenta. 05/10/2019 [facility]05/10/2019
== END 2019-05-07 13:50 | disposition home or self-care (01) | DRG 540 ==
LOC: JLDR 14:45 → J3W 18:17 → JLDR 23:56 → J3W 05-04 21:15
PROVIDERS: ADMIT Obstetrics & Gynecology; ATTEND Obstetrics & Gynecology
PROC: 3E0P7VZ Introduction of Hormone into Female Reproductive, Via Natural or Artificial Opening (ICD-10-PCS; 2019-05-03)
PROC: 10D00Z1 Extraction of Products of Conception, Low, Open Approach (ICD-10-PCS; principal; 2019-05-04)
DX: O61.0 Failed medical induction of labor (principal); O41.03X0 Oligohydramnios, third trimester, not applicable or unspecified; Z3A.40 40 weeks gestation of pregnancy; Z37.0 Single live birth
CPT/HCPCS: 36415; 80048; 85025; 85610; 85730; 86593; 86850; 86900; 86901; 88307-TC